=== PATIENT | female | born 1960 | race Caucasian/White ===

== ENCOUNTER 2019-04-14 17:56 | Inpatient (IN) | payer MEDICARE, OTHER ==
[~2019-04-14] VITALS: Ht 157.5 cm; Wt 52.6 kg
[~2019-04-14 17:56] MED LIST: ALBIPROI INH; ALBU.083IS IH; ALBU3IS INH; ALBU90OI INH; ALBU90OI6 INH; ALBU90OI61 INH; ALBUTEROL; AZIT250 PO; Brovana15 MCG/2 M; DIAZ5 PO; DOXY100 PO; DULERA 200 MCG/13 GM INH; FLOVENT; FLUSAL2505 IH; FLUSAL5005 INH; FLUT110OIA IH; GUAI600T33 PO; INSLIS75I SC; Ipratr-Albuterol3 ML IH; LEVFLO500 PO; LEVO750 PO; Levaquin500 MG PO; MONT10T PO; NAPR500 PO; NICO14TP TOP; OXYGEN; PRED10 PO; PRED20 PO; PRENISONE PO; Prednisone20 MG PO; Q-Tussin100 MG/5 M PO; RXALBOI INH; THEO PO; TIOT18 IH; TIOT18 INH; TUDORZA PRESS400 MCG IH; [UNRECOGNIZED DRUG - OTHER] PO
[2019-04-14 18:45] LABS: BASOPHILS ABSOLUTE AUTO 0.04 K/mm3 (0.00-0.23); BASOPHILS PERCENT AUTO 0 % (0-2); EOSINOPHILS ABSOLUTE AUTO 0.77 K/mm3 (0.00-0.68); EOSINOPHILS PERCENT AUTO 7 % (0-6); Hemoglobin 11.8 g/dL (11.5-16.0); IMMATURE GRAN ABSOLUTE AUTO 0.02 K/mm3 (0.00-0.10); IMMATURE GRAN PERCENT AUTO 0 % (0-1); LYMPHOCYTES ABSOLUTE AUTO 3.06 K/mm3 (0.84-5.20); LYMPHOCYTES PERCENT AUTO 28 % (21-46); MONOCYTES ABSOLUTE AUTO 0.92 K/mm3 (0.16-1.47); MONOCYTES PERCENT AUTO 9 % (4-13); Mean Corpuscular HGB 30.6 pg (26.0-34.0); Mean Corpuscular HGB Conc 30.3 g/dL (31.5-36.5); Mean Corpuscular Volume 101 fL (80-100); Mean Platelet Volume 10.5 fL (9.1-12.4); NEUTROPHILS ABSOLUTE AUTO 6.01 K/mm3 (1.96-9.15); NEUTROPHILS PERCENT AUTO 56 % (41-73); Platelet Count 271 K/mm3 (150-400); RDW Coefficient Variation 11.9 % (11.7-14.2); Red Blood Cell Count 3.86 M/mm3 (3.80-5.20); White Blood Cell Count 10.82 K/mm3 (4.00-11.30)
[2019-04-14 19:09] LABS: Alanine Aminotransfer (ALT/SGP 16 U/L (12-78); Albumin, Blood 3.7 g/dL (3.4-5.0); Albumin/Globulin Ratio 0.9 (0.8-1.8); Alk Phos 76 U/L (50-136); Anion Gap 3 mmol/L (6-16); Aspartate Aminotrans (AST/SGOT 12 U/L (12-37); Bilirubin, Total 0.1 mg/dL (0.1-1.0); Blood Urea Nitrogen 7 mg/dL (8-24); Bun/Creatinine Ratio 13.3 (12.0-20.0); CO2, Blood 41 mmol/L (21-32); Calcium, Blood 9.1 mg/dL (8.5-10.1); Chloride, Blood 100 mmol/L (98-108); Creatinine, Blood 0.53 mg/dL (0.40-1.00); Globulin, Blood 4.2 g/dL (2.2-4.0); Glomerular Filtration Rate >60 (60-); Glucose, Blood 95 mg/dL (70-99); Potassium, Blood 4.4 mmol/L (3.5-5.5); Sodium, Blood 144 mmol/L (136-145); Total Protein, Blood 7.9 g/dL (6.4-8.2)
[2019-04-14] MEDS ORDERED: Ventolin/Prove6.7 GM INH (21:08)
[2019-04-14] MEDS ORDERED: ALBU3IS INH (21:09)
[2019-04-14] MEDS ORDERED: ALBU2.5V5 INH (21:09)
[2019-04-14] MEDS ORDERED: SODIUM CHLORIDE10 ML INH (21:11)
[2019-04-14] MEDS ORDERED: Budesonide0.5 MG/2 M INH (21:12)
[2019-04-14] MEDS ORDERED: MONTELUKAST SOD10 MG PO (21:12)
--- NOTE | 2019-04-14 22:07 | NUR ---
ADMISSION NOTE PT ARRIVED TO MEDICAL FLOOR VIA STRETCHER AND AMBULATES SBA TO BED/ PT IN TRIPOD POSITION UPON ARRIVAL, ON 2L VIA. REPORTS SOB, BUT "NOT BAD IT WAS". PT RECIEVED NEB PRIOR TO ARRIVAL. ASSUMING CARE OF PT.
[2019-04-15 04:52] LABS: Hematocrit 35.7 % (33.0-51.0); Hemoglobin 10.8 g/dL (11.5-16.0); Mean Corpuscular HGB 30.3 pg (26.0-34.0); Mean Corpuscular HGB Conc 30.3 g/dL (31.5-36.5); Mean Corpuscular Volume 100 fL (80-100); Mean Platelet Volume 10.5 fL (9.1-12.4); Platelet Count 257 K/mm3 (150-400); RDW Coefficient Variation 11.7 % (11.7-14.2); RDW Standard Deviation 42.3 fL (35.1-46.3); Red Blood Cell Count 3.57 M/mm3 (3.80-5.20); White Blood Cell Count 11.21 K/mm3 (4.00-11.30)
[2019-04-15 05:10] LABS: Anion Gap 3 mmol/L (6-16); Blood Urea Nitrogen 8 mg/dL (8-24); CO2, Blood 36 mmol/L (21-32); Calcium, Blood 8.9 mg/dL (8.5-10.1); Chloride, Blood 101 mmol/L (98-108); Glomerular Filtration Rate >60 (60-); Glucose, Blood 172 mg/dL (70-99); Potassium, Blood 4.2 mmol/L (3.5-5.5); Sodium, Blood 140 mmol/L (136-145)
--- NOTE | 2019-04-15 06:18 | NUR ---
SHIFT SUMMARY PT ADMITTED EARLIER IN SHIFT. LS WHEEZE AND COARSE T/O, NEBS Q4H PRN. PT WITH HACKING, CONGESTED COUGH, REPORTS THIS BEEN OCCURING FOR 2 WKS. PT ON 2L VIA NC, BASELINE. O2 SATS REMAINS 93-95%. PT DYSPNIEC UPON ANY EXERTION, TRIPOD POSITIONING AND PURSED-LIP BREATHING NOTED UPON SEVERAL INSTANCES. IV SOLU-MEDROL ADMINISTERED Q8H PER EMAR. HR IN THE 110'S FROM NEBS AND SOLU-MEDROL. LR RUNNING @ 75 ML/HR X1 BAG ONLY. WILL CONT TO MONITOR AND PROVIDE CARE UNTIL PRESUMED BY ONCOMING RN.
--- NOTE | 2019-04-15 17:18 | NUR ---
SHIFT SUMMARY PT HAS HAD NO COMPLAINTS THIS SHIFT. OXYGEN AT 2L VIA NC, AND IS PT'S BASELINE. PT HAS OCCASIONAL NONPRODUCTIVE COUGH. NO COMPLAINTS OF PAIN. IV SOLUMEDROL GIVEN PER EMAR. PT UP TO BSC INDEPENDENTLY. NO FURTHER REQUESTS THIS SHIFT. CALL LIGHT IN REACH. WILL CONTINUE TO MONITOR AND REPORT TO ONCOMING RN.
[2019-04-16 05:15] LABS: PCO2 Arterial 74.5 mmHg (35-45); PO2 Arterial 80.4 mmHg (80-100); pH Blood Arterial 7.37 (7.35-7.45)
--- NOTE | 2019-04-16 07:09 | NUR ---
critical value called to dr and RT, on and off of o2, saline locked, call light in reach, pulse rate goes up when treated but goes back down between
--- NOTE | 2019-04-16 17:42 | NUR ---
review of patient with jonathan Garza. Went to see patient she was just laying down. looked as if she had been crying. She did not want to meet will return for support.
--- NOTE | 2019-04-16 18:01 | NUR ---
[facility] intial note: Janelle was sitting up in bed in tri-pod. Very SOB--so much so that converstion was difficult. She coughed when she tried to speak. She looked fearful and anxious. She was alone in room. She told me she was in pain, but RN had just medicated. Asked Palliative Care team to make Janelle a priority. I will continue to check-in as schedule permits.
--- NOTE | 2019-04-16 18:13 | NUR ---
SHIFT SUMMARY PT HAS BEEN SLEEPING A LOT OF THE SHIFT. MEDICATED FOR HEADACHE X1 THIS SHIFT. PT COMPLAINED OF INDIGESTION AND TUMS ADMINISTERED PER EMAR. PT UP TO BSC WITHOUT DIFFICULTY. 2L OXYGEN VIA NC. PT RECEIVING BREATHING TREATMENTS PER EMAR/REQUEST. NO ACUTE CHANGES THIS SHIFT. CALL LIGHT IN REACH. WILL CONTINUE TO MONITOR AND REPORT TO ONCOMING RN.
[2019-04-17 05:45] LABS: Albumin, Blood 3.3 g/dL (3.4-5.0); Anion Gap 3 mmol/L (6-16); Blood Urea Nitrogen 14 mg/dL (8-24); Bun/Creatinine Ratio 34.5 (12.0-20.0); CO2, Blood 38 mmol/L (21-32); Calcium, Blood 9.3 mg/dL (8.5-10.1); Chloride, Blood 98 mmol/L (98-108); Creatinine, Blood 0.41 mg/dL (0.40-1.00); Glomerular Filtration Rate >60 (60-); Glucose, Blood 186 mg/dL (70-99); Phosphorus, Blood 3.3 mg/dL (2.5-4.9); Potassium, Blood 4.1 mmol/L (3.5-5.5); Sodium, Blood 139 mmol/L (136-145)
--- NOTE | 2019-04-17 07:07 | NUR ---
a+o, walked to end of rouse with 02, 2L via nc, added extension so able to walk to bathroom on o2, saline locked, call light in reach, bsr shared with pt and day shift
--- NOTE | 2019-04-17 18:14 | NUR ---
NO ACUTE CHANGES NOTED THIS SHIFT. NO REPORTS PAIN OR N/V, PT'S COUGH SOUNDS CONGESTED BUT SHE REPORTS GETTING SCANT AMOUNT UP OCCASIONALLY. RECEIVING SCHEDULED RESP TREATMENTS. WILL CONTINUE TO MONITOR AND REPORT TO ONCOMING RN
[2019-04-18 05:41] LABS: Albumin, Blood 3.3 g/dL (3.4-5.0); Anion Gap 5 mmol/L (6-16); Blood Urea Nitrogen 14 mg/dL (8-24); Bun/Creatinine Ratio 34.8 (12.0-20.0); CO2, Blood 38 mmol/L (21-32); Chloride, Blood 97 mmol/L (98-108); Glomerular Filtration Rate >60 (60-); Glucose, Blood 111 mg/dL (70-99); Potassium, Blood 3.9 mmol/L (3.5-5.5); Sodium, Blood 140 mmol/L (136-145)
--- NOTE | 2019-04-18 05:51 | NUR ---
complained of cp, vss, hr steady, pain on r side of chest did not radiate, did resolve in a short period of time, stated she would be able sleep again that it was possibly just her coughing/chest congestion
--- NOTE | 2019-04-18 07:01 | NUR ---
a+o, complained of cp, but resolved stated felt same as previous events caused by coughing, call light in reach, saline locked, 2L via nc, able to make needs known, bsr completed with returning day shift nurse
[2019-04-18] MEDS ORDERED: ASPI81CH PO (11:52)
[2019-04-18] MEDS ORDERED: TUMS500 MG PO (11:52)
[2019-04-18] MEDS ORDERED: GUAI600T33 PO (11:53)
[2019-04-18] MEDS ORDERED: AIRDUO RESPICL1 EAC2 INH (11:55)
[2019-04-18] MEDS ORDERED: Prednisone10 MG PO (11:55)
[2019-04-18] MEDS ORDERED: SEEBRI NEOHALER INH (11:57)
[2019-04-18] MEDS ORDERED: ALBU2.5V5 INH (15:04)
--- NOTE | 2019-04-18 16:06 | NUR ---
DISCHARGE DISCHARGE INSTRUCTIONS, FOLLOW UP APPOINTMENTS AND MEDICATION LIST REVIEWED WITH PT. QUESTIONS/CONCERNS ANSWERED. PT VERBALLY INDICATED UNDERSTANDING OF ALL INSTRUCTIONS RECEIVED. ESCORTED OUT VIA W/C BY APPRENTICE STYLIST.
== END 2019-04-18 16:07 | disposition home or self-care (01) | DRG 189 ==
LOC: ER 17:56 → MEDS 21:57 → ENPENDDIS 04-18 11:27 → MEDS 04-18 16:07
PROVIDERS: Internal Medicine; Physician Assistant; ADMIT Internal Medicine
DX: J96.21 Acute and chronic respiratory failure with hypoxia (principal); J44.1 Chronic obstructive pulmonary disease with (acute) exacerbation; I50.32 Chronic diastolic (congestive) heart failure; K52.1 Toxic gastroenteritis and colitis; J96.22 Acute and chronic respiratory failure with hypercapnia; Z99.81 Dependence on supplemental oxygen; F41.9 Anxiety disorder, unspecified; R91.8 Other nonspecific abnormal finding of lung field; E03.9 Hypothyroidism, unspecified; K21.9 Gastro-esophageal reflux disease without esophagitis; M19.90 Unspecified osteoarthritis, unspecified site; F17.200 Nicotine dependence, unspecified, uncomplicated; Z88.2 Allergy status to sulfonamides; T36.8X5A Adverse effect of other systemic antibiotics, initial encounter
CPT/HCPCS: 36415; 36600; 71046; 80048; 80053; 80069; 82803; 85025; 85027; 93005; 93010; 94640; 94644; 94667; 94668; 94760; 96374; 99285-25; A9270-GY; J1650; J2930; J7120; J7512

== ENCOUNTER 2019-05-03 14:18 | Emergency (ER) | payer MEDICARE, OTHER ==
[~2019-05-03] VITALS: Ht 154.9 cm; Wt 50.4 kg
[~2019-05-03 14:18] MED LIST changes: +AIRDUO RESPICL1 EAC2 INH; +ALBU2.5V5 INH; +ASPI81CH PO; +Budesonide0.5 MG/2 M INH; +MONTELUKAST SOD10 MG PO; +Prednisone10 MG PO; +SEEBRI NEOHALER INH; +SODIUM CHLORIDE10 ML INH; +TUMS500 MG PO; +Ventolin/Prove6.7 GM INH
[2019-05-03 14:52] LABS: BASOPHILS ABSOLUTE AUTO 0.02 K/mm3 (0.00-0.23); BASOPHILS PERCENT AUTO 0 % (0-2); EOSINOPHILS ABSOLUTE AUTO 0.01 K/mm3 (0.00-0.68); EOSINOPHILS PERCENT AUTO 0 % (0-6); Hematocrit 41.8 % (33.0-51.0); Hemoglobin 13.1 g/dL (11.5-16.0); IMMATURE GRAN ABSOLUTE AUTO 0.06 K/mm3 (0.00-0.10); IMMATURE GRAN PERCENT AUTO 0 % (0-1); LYMPHOCYTES ABSOLUTE AUTO 1.13 K/mm3 (0.84-5.20); LYMPHOCYTES PERCENT AUTO 7 % (21-46); MONOCYTES ABSOLUTE AUTO 0.43 K/mm3 (0.16-1.47); MONOCYTES PERCENT AUTO 3 % (4-13); Mean Corpuscular HGB 30.7 pg (26.0-34.0); Mean Corpuscular HGB Conc 31.3 g/dL (31.5-36.5); Mean Corpuscular Volume 98 fL (80-100); Mean Platelet Volume 9.9 fL (9.1-12.4); NEUTROPHILS ABSOLUTE AUTO 15.03 K/mm3 (1.96-9.15); NEUTROPHILS PERCENT AUTO 90 % (41-73); Platelet Count 410 K/mm3 (150-400); RDW Coefficient Variation 13.4 % (11.7-14.2); RDW Standard Deviation 48.1 fL (35.1-46.3); Red Blood Cell Count 4.27 M/mm3 (3.80-5.20); White Blood Cell Count 16.68 K/mm3 (4.00-11.30)
[2019-05-03 16:23] LABS: Alanine Aminotransfer (ALT/SGP 20 U/L (12-78); Albumin, Blood 4.1 g/dL (3.4-5.0); Albumin/Globulin Ratio 1.1 (0.8-1.8); Alk Phos 71 U/L (50-136); Anion Gap 4 mmol/L (6-16); Aspartate Aminotrans (AST/SGOT 10 U/L (12-37); Bilirubin, Total 0.4 mg/dL (0.1-1.0); Blood Urea Nitrogen 13 mg/dL (8-24); Bun/Creatinine Ratio 19.5 (12.0-20.0); CO2, Blood 32 mmol/L (21-32); Chloride, Blood 102 mmol/L (98-108); Creatinine, Blood 0.67 mg/dL (0.40-1.00); Globulin, Blood 3.6 g/dL (2.2-4.0); Glomerular Filtration Rate >60 (60-); Glucose, Blood 142 mg/dL (70-99); Potassium, Blood 4.5 mmol/L (3.5-5.5); Sodium, Blood 138 mmol/L (136-145); Total Protein, Blood 7.7 g/dL (6.4-8.2); Troponin I <0.015 ng/mL (0.000-0.040)
[2019-05-03] MEDS ORDERED: DOXY100 PO (17:53)
[2019-05-03] MEDS ORDERED: METPRE4DP PO (17:53)
== END 2019-05-03 18:20 | disposition home or self-care (01) ==
LOC: ER 14:18
PROVIDERS: Emergency Medicine
DX: J44.1 Chronic obstructive pulmonary disease with (acute) exacerbation (principal); J96.10 Chronic respiratory failure, unspecified whether with hypoxia or hypercapnia; F41.9 Anxiety disorder, unspecified; I25.10 Atherosclerotic heart disease of native coronary artery without angina pectoris; D72.829 Elevated white blood cell count, unspecified; Z87.891 Personal history of nicotine dependence; Z88.2 Allergy status to sulfonamides; Z79.899 Other long term (current) drug therapy; Z79.82 Long term (current) use of aspirin
CPT/HCPCS: 71046; 80053; 84484; 85025; 93005; 93010; 94640; 99284-25

== ENCOUNTER 2019-06-09 09:36 | Emergency (ER) | payer MEDICARE, OTHER ==
[~2019-06-09] VITALS: Ht 157.5 cm; Wt 52.2 kg
[~2019-06-09 09:36] MED LIST changes: +METPRE4DP PO
[2019-06-09] MEDS ORDERED: Budesonide0.5 MG/2 M INH (10:00)
[2019-06-09] MEDS ORDERED: ALBU3IS INH (10:01)
[2019-06-09 11:13] LABS: BASOPHILS ABSOLUTE AUTO 0.05 K/mm3 (0.00-0.23); BASOPHILS PERCENT AUTO 0 % (0-2); EOSINOPHILS ABSOLUTE AUTO 0.54 K/mm3 (0.00-0.68); EOSINOPHILS PERCENT AUTO 4 % (0-6); Hematocrit 39.8 % (33.0-51.0); Hemoglobin 12.5 g/dL (11.5-16.0); IMMATURE GRAN ABSOLUTE AUTO 0.03 K/mm3 (0.00-0.10); IMMATURE GRAN PERCENT AUTO 0 % (0-1); LYMPHOCYTES ABSOLUTE AUTO 2.56 K/mm3 (0.84-5.20); LYMPHOCYTES PERCENT AUTO 20 % (21-46); MONOCYTES PERCENT AUTO 9 % (4-13); Mean Corpuscular HGB Conc 31.4 g/dL (31.5-36.5); Mean Corpuscular Volume 96 fL (80-100); Mean Platelet Volume 10.4 fL (9.1-12.4); NEUTROPHILS ABSOLUTE AUTO 8.29 K/mm3 (1.96-9.15); NEUTROPHILS PERCENT AUTO 66 % (41-73); Platelet Count 440 K/mm3 (150-400); Red Blood Cell Count 4.16 M/mm3 (3.80-5.20); White Blood Cell Count 12.57 K/mm3 (4.00-11.30)
[2019-06-09 11:39] LABS: Alanine Aminotransfer (ALT/SGP 21 U/L (12-78); Albumin/Globulin Ratio 0.9 (0.8-1.8); Alk Phos 89 U/L (50-136); Anion Gap 6 mmol/L (6-16); Aspartate Aminotrans (AST/SGOT 18 U/L (12-37); Bilirubin, Total 0.2 mg/dL (0.1-1.0); Blood Urea Nitrogen 7 mg/dL (8-24); Bun/Creatinine Ratio 13.3 (12.0-20.0); CO2, Blood 30 mmol/L (21-32); Calcium, Blood 9.4 mg/dL (8.5-10.1); Chloride, Blood 106 mmol/L (98-108); Creatinine, Blood 0.53 mg/dL (0.40-1.00); Globulin, Blood 4.4 g/dL (2.2-4.0); Glomerular Filtration Rate >60 (60-); Glucose, Blood 95 mg/dL (70-99); Potassium, Blood 4.1 mmol/L (3.5-5.5); Sodium, Blood 142 mmol/L (136-145); Total Protein, Blood 8.4 g/dL (6.4-8.2); Troponin I <0.015 ng/mL (0.000-0.040)
[2019-06-09] MEDS ORDERED: AZIT250 PO (12:49)
[2019-06-09] MEDS ORDERED: Prednisone20 MG PO (12:49)
== END 2019-06-09 13:08 | disposition home or self-care (01) ==
LOC: ER 09:36
PROVIDERS: Emergency Medicine
DX: J44.1 Chronic obstructive pulmonary disease with (acute) exacerbation (principal); I25.10 Atherosclerotic heart disease of native coronary artery without angina pectoris; F41.9 Anxiety disorder, unspecified; K21.9 Gastro-esophageal reflux disease without esophagitis; E03.9 Hypothyroidism, unspecified; G47.30 Sleep apnea, unspecified; Z88.2 Allergy status to sulfonamides; Z79.899 Other long term (current) drug therapy; Z79.51 Long term (current) use of inhaled steroids; Z99.89 Dependence on other enabling machines and devices; Z87.891 Personal history of nicotine dependence; Z99.81 Dependence on supplemental oxygen
CPT/HCPCS: 71046; 80053; 83880; 84484; 85025; 93005; 93010; 94640; 99285-25; J7512

== ENCOUNTER → 2025-02-25 | Outpatient (CLI) | payer MEDICARE, OTHER ==
[2025-02-25 18:05] LABS: BASOPHILS ABSOLUTE AUTO 0.03 K/mm3 (0.00-0.23); BASOPHILS PERCENT AUTO 0 % (0-2); EOSINOPHILS ABSOLUTE AUTO 0.23 K/mm3 (0.00-0.68); EOSINOPHILS PERCENT AUTO 3 % (0-6); Hematocrit 32.7 % (33.0-51.0); Hemoglobin 9.3 g/dL (11.5-16.0); IMMATURE GRAN ABSOLUTE AUTO 0.02 K/mm3 (0.00-0.10); IMMATURE GRAN PERCENT AUTO 0 % (0-1); LYMPHOCYTES ABSOLUTE AUTO 1.48 K/mm3 (0.84-5.20); LYMPHOCYTES PERCENT AUTO 21 % (21-46); MONOCYTES ABSOLUTE AUTO 1.02 K/mm3 (0.16-1.47); MONOCYTES PERCENT AUTO 14 % (4-13); Mean Corpuscular HGB Conc 28.4 g/dL (31.5-36.5); Mean Corpuscular Volume 83 fL (80-100); NEUTROPHILS ABSOLUTE AUTO 4.30 K/mm3 (1.96-9.15); NEUTROPHILS PERCENT AUTO 61 % (41-73); NRBC ABSOLUTE 0.00 K/mm3 (0.00-0.02); NRBC Auto 0.0 /100 WBC (0.0-0.2); Platelet Count 374 K/mm3 (150-400); RDW Coefficient Variation 13.6 % (11.7-14.2); RDW Standard Deviation 41.4 fL (35.1-46.3)
== END | disposition home or self-care (01) ==
LOC: LAB SHORT 16:25 → LAB 16:25
PROVIDERS: Family Medicine
DX: D64.9 Anemia, unspecified (principal)
CPT/HCPCS: 84443; 85025

== ENCOUNTER 2025-06-21 17:30 | Emergency (ER) | payer MEDICARE, OTHER ==
[~2025-06-21] VITALS: Ht 157.5 cm; Wt 49.9 kg
[2025-06-21] MEDS ORDERED: Ipratropium/Albuterol SulF 2.5-0.5MG/3 ML Amp INH ONE (17:45)
[2025-06-21 18:16] LABS: BASOPHILS ABSOLUTE AUTO 0.05 K/mm3 (0.00-0.23); BASOPHILS PERCENT AUTO 0 % (0-2); EOSINOPHILS ABSOLUTE AUTO 0.19 K/mm3 (0.00-0.68); EOSINOPHILS PERCENT AUTO 1 % (0-6); Hematocrit 31.0 % (33.0-51.0); Hemoglobin 9.0 g/dL (11.5-16.0); IMMATURE GRAN ABSOLUTE AUTO 0.06 K/mm3 (0.00-0.10); IMMATURE GRAN PERCENT AUTO 0 % (0-1); LYMPHOCYTES ABSOLUTE AUTO 2.06 K/mm3 (0.84-5.20); LYMPHOCYTES PERCENT AUTO 12 % (21-46); MONOCYTES ABSOLUTE AUTO 2.10 K/mm3 (0.16-1.47); MONOCYTES PERCENT AUTO 12 % (4-13); Mean Corpuscular HGB Conc 29.0 g/dL (31.5-36.5); Mean Corpuscular Volume 84 fL (80-100); NEUTROPHILS ABSOLUTE AUTO 12.48 K/mm3 (1.96-9.15); NEUTROPHILS PERCENT AUTO 74 % (41-73); NRBC ABSOLUTE 0.00 K/mm3 (0.00-0.02); NRBC Auto 0.0 /100 WBC (0.0-0.2); Platelet Count 486 K/mm3 (150-400); RDW Coefficient Variation 13.4 % (11.7-14.2); RDW Standard Deviation 41.1 fL (35.1-46.3)
[2025-06-21 18:43] LABS: Alanine Aminotransfer (ALT/SGP 16.0 U/L (12-78); Albumin, Blood 3.0 g/dL (3.4-5.0); Albumin/Globulin Ratio 0.6 (0.8-1.8); Anion Gap 7.0 mmol/L (3-11); Aspartate Aminotrans (AST/SGOT 10.0 U/L (12-37); Bilirubin, Total 0.3 mg/dL (0.1-1.0); Blood Urea Nitrogen 6.0 mg/dL (8-24); CO2, Blood 39.0 mmol/L (21-32); Calcium, Blood 9.3 mg/dL (8.5-10.1); Chloride, Blood 90.0 mmol/L (98-108); Creatinine, Blood 0.53 mg/dL (0.40-1.00); Globulin, Blood 5.3 g/dL (2.2-4.0); Glucose, Blood 153.0 mg/dL (70-99); Magnesium, Blood 2.3 mg/dL (1.6-2.4); Potassium, Blood 3.7 mmol/L (3.5-5.5); Sodium, Blood 132.0 mmol/L (136-145); Total Protein, Blood 8.3 g/dL (6.4-8.2)
[2025-06-21] MEDS ORDERED: PRED20 PO (19:34)
[2025-06-21 20:30] VITALS: BP 128/85
[2025-06-21] MEDS ORDERED: Prednisone20 MG PO (20:34)
== END 2025-06-21 20:33 | disposition home or self-care (01) ==
LOC: ER 17:30
PROVIDERS: Student in an Organized Health Care Education/Training Program
DX: J44.1 Chronic obstructive pulmonary disease with (acute) exacerbation (principal); K21.9 Gastro-esophageal reflux disease without esophagitis; E03.9 Hypothyroidism, unspecified; I25.10 Atherosclerotic heart disease of native coronary artery without angina pectoris; G47.30 Sleep apnea, unspecified; Z88.2 Allergy status to sulfonamides; Z79.899 Other long term (current) drug therapy; Z87.891 Personal history of nicotine dependence
CPT/HCPCS: 71045; 80053; 83735; 84484; 85025; 93005; 93010; 99285-25